=== PATIENT | male | born 1985 | race Caucasian/White ===

== ENCOUNTER 2017-01-15 19:43 | Emergency (ER) | payer OTHER | END 2017-01-15 21:30 | disposition home or self-care (01) | LOC: ER1 19:43 | DX: S05.02XA Injury of conjunctiva and corneal abrasion without foreign body, left eye, initial encounter (principal); F17.210 Nicotine dependence, cigarettes, uncomplicated; X58.XXXA Exposure to other specified factors, initial encounter; Y93.89 Activity, other specified; Z88.8 Allergy status to other drugs, medicaments and biological substances; Z23 Encounter for immunization | CPT/HCPCS: 90471; 90714; 99283 ==

== ENCOUNTER 2021-03-30 21:42 | Emergency (ER) | payer OTHER | END 2021-03-31 01:25 | disposition home or self-care (01) | LOC: ER1 21:42 | DX: M54.2 Cervicalgia (principal); S01.01XA Laceration without foreign body of scalp, initial encounter; K21.9 Gastro-esophageal reflux disease without esophagitis; M19.90 Unspecified osteoarthritis, unspecified site; F17.210 Nicotine dependence, cigarettes, uncomplicated; Z88.8 Allergy status to other drugs, medicaments and biological substances; Y04.2XXA Assault by strike against or bumped into by another person, initial encounter | CPT/HCPCS: 70450; 72125; 73090; 73130; 99284 ==

== ENCOUNTER 2021-04-03 17:14 | Emergency (ER) | payer OTHER | END 2021-04-03 17:47 | disposition home or self-care (01) | LOC: ER1 17:14 | DX: J06.9 Acute upper respiratory infection, unspecified (principal); Z20.822 Contact with and (suspected) exposure to COVID-19; Z90.89 Acquired absence of other organs | CPT/HCPCS: 99283; U0003 ==